=== PATIENT | female | born 1990 | race Caucasian/White ===

== ENCOUNTER 2023-11-20 15:08 | Inpatient (IN) | payer OTHER ==
[~2023-11-20] VITALS: Ht 157.5 cm; Wt 87.1 kg
[2023-11-20 16:21] LABS: EOSINOPHILS % 0.6 % (0.0-5.0); LYMPHOCYTES % 24.7 % (20.0-50.0); MEAN CORPUSCULAR HEMOGLOBIN 14.3 pg (28.0-32.0); MEAN CORPUSCULAR VOLUME 54.9 fL (81.0-99.0); MEAN PLATELET VOLUME 8.7 fl (7.4-10.4); MONOCYTES % 4.7 % (2.0-8.0); PLATELET 189 x1000/uL (130-400); RED BLOOD CELL COUNT 1.73 mill/uL (4.2-5.4); RED CELL DISTRIBUTION WIDTH 21.5 % (11.6-14.6); WHITE BLOOD COUNT 3.3 x1000/uL (4.5-11.0)
[2023-11-20 16:31] LABS: ADD RBC MORPHOLOGY YES; DIFFERENTIAL COMMENT 1; HEMATOCRIT. 9.5 % (36.0-48.0); HEMOGLOBIN. 2.5 g/dL (12.0-16.0)
[2023-11-20 16:36] LABS: ALANINE AMINOTRANSFERASE 25 IU/L (10-49); ALBUMIN 3.8 g/dL (3.2-4.8); ASPARTATE AMINOTRANSFERASE 14 IU/L (<34); BILIRUBIN TOTAL 1.4 mg/dL (0.1-1.0); CALCIUM 8.4 mg/dL (8.7-10.4); CARBON DIOXIDE 21 mEq/L (21-32); CHLORIDE 108 mEq/L (98-107); CREATININE 0.6 mg/dL (0.6-1.0); GLUCOSE 102 mg/dL (70-105); POTASSIUM 4.1 mEq/L (3.5-5.1); PROTEIN TOTAL 7.7 g/dL (6.0-8.3); SODIUM 137 mEq/L (136-145)
[2023-11-20 16:40] LABS: HCG SCREEN NEGATIVE
[2023-11-20 16:42] LABS: TROPONIN I HIGH SENSITIVITY < 4 ng/L (3.0-34); UREA NITROGEN BLOOD < 5 mg/dL (9-23)
[2023-11-20 17:00] LABS: HYPOCHROMASIA 2+; MICROCYTOSIS 2+
[2023-11-20 17:01] LABS: PLATELET ESTIMATE NORMAL
[2023-11-20 18:53] LABS: TROPONIN I HIGH SENSITIVITY < 4 ng/L (3.0-34)
[2023-11-20] MEDS: PANTOPRAZOLE SODIUM 40 MG/VIAL IV ONE (18:59)
[2023-11-20] MEDS: SODIUM CHLORIDE 0.9% 500 ML IV ONE (18:59)
[2023-11-20] MEDS ORDERED: DIPHENHYDRAMINE 50MG/ML VIAL IV PRN (22:30)
[2023-11-20] MEDS ORDERED: ONDANSETRON HCL 4MG/2ML INJ IV PRN (22:30)
[2023-11-20] MEDS ORDERED: HYDROCODONE/ACETAMINOPHEN 5/325MG TABLET PO PRN (22:30)
[2023-11-20] MEDS ORDERED: ACETAMINOPHEN 325MG TABLET PO PRN (22:30)
[2023-11-20] MEDS ORDERED: MAGNESIUM/ALUMINUM HYDROXIDE/SIMETHICONE 30ML UDC PO PRN (22:30)
[2023-11-20] MEDS ORDERED: DOCUSATE SODIUM 100MG CAPSULE PO PRN (22:30)
[2023-11-20] MEDS ORDERED: CLONIDINE 0.1MG TABLET PO PRN (22:30)
[2023-11-20] MEDS ORDERED: LORAZEPAM 2MG/ML INJ IV PRN (22:30)
[2023-11-20] MEDS ORDERED: NA PHOS,M-B/NA PHOS,DI-BA ENEMA 118ML PR PRN (22:30)
[2023-11-20] MEDS ORDERED: IPRATROPIUM/ALBUTEROL 0.5-3(2.5)MG/3ML NEB NEB PRN (22:30)
[2023-11-20] MEDS: SODIUM CHLORIDE 0.9% 1,000 ML IV SCH (22:47)
[2023-11-21] VITALS (12 sets, daily range): BP systolic 129–152; BP diastolic 64–82; PULSE 69–98; RESP 16–22; TEMP 97–98.6
[2023-11-21 00:58] LABS: BASOPHILS % 1.2 % (0.0-2.0); EOSINOPHILS % 0.8 % (0.0-5.0); LYMPHOCYTES % 27.7 % (20.0-50.0); MEAN CORPUSCULAR HEMOGLOBIN 22.4 pg (28.0-32.0); MEAN CORPUSCULAR HGB CONC 31.4 g/dL (31.0-37.0); MEAN CORPUSCULAR VOLUME 71.5 fL (81.0-99.0); MEAN PLATELET VOLUME 8.9 fl (7.4-10.4); MONOCYTES % 6.6 % (2.0-8.0); NEUTROPHILS % 63.7 % (40.0-76.0); PLATELET 182 x1000/uL (130-400); RED BLOOD CELL COUNT 2.62 mill/uL (4.2-5.4); RED CELL DISTRIBUTION WIDTH 33.1 % (11.6-14.6); WHITE BLOOD COUNT 3.7 x1000/uL (4.5-11.0)
[2023-11-21 01:03] LABS: DIFFERENTIAL COMMENT 1; HEMATOCRIT. 18.7 % (36.0-48.0); HEMOGLOBIN. 5.9 g/dL (12.0-16.0)
[2023-11-21 01:21] LABS: CALCIUM 8.1 mg/dL (8.7-10.4); CARBON DIOXIDE 19 mEq/L (21-32); CHLORIDE 109 mEq/L (98-107); CREATININE 0.5 mg/dL (0.6-1.0); GLUCOSE 82 mg/dL (70-105); POTASSIUM 4.1 mEq/L (3.5-5.1); SODIUM 137 mEq/L (136-145)
[2023-11-21 01:25] LABS: UREA NITROGEN BLOOD < 5 mg/dL (9-23)
[2023-11-21 04:36] LABS: ALANINE AMINOTRANSFERASE 20 IU/L (10-49); ALBUMIN 3.7 g/dL (3.2-4.8); ASPARTATE AMINOTRANSFERASE 14 IU/L (<34); CALCIUM 8.2 mg/dL (8.7-10.4); CARBON DIOXIDE 20 mEq/L (21-32); CHLORIDE 109 mEq/L (98-107); CREATININE 0.5 mg/dL (0.6-1.0); GLUCOSE 89 mg/dL (70-105); POTASSIUM 3.9 mEq/L (3.5-5.1); PROTEIN TOTAL 7.2 g/dL (6.0-8.3); SODIUM 137 mEq/L (136-145)
[2023-11-21 04:44] LABS: BILIRUBIN TOTAL 2.7 mg/dL (0.1-1.0); UREA NITROGEN BLOOD < 5 mg/dL (9-23)
[2023-11-21] MEDS ORDERED: GUAIFENESIN 200MG/10ML SUGAR FREE UDC PO PRN (07:45)
[2023-11-21] MEDS ORDERED: IPRATROPIUM/ALBUTEROL 0.5-3(2.5)MG/3ML NEB HHN PRN (07:45)
[2023-11-21 08:55] LABS: MEAN CORPUSCULAR HEMOGLOBIN 21.8 pg (28.0-32.0); MEAN CORPUSCULAR HGB CONC 30.9 g/dL (31.0-37.0); MEAN CORPUSCULAR VOLUME 70.5 fL (81.0-99.0); PLATELET 176 x1000/uL (130-400); RED BLOOD CELL COUNT 2.66 mill/uL (4.2-5.4); RED CELL DISTRIBUTION WIDTH 32.6 % (11.6-14.6); WHITE BLOOD COUNT 4.7 x1000/uL (4.5-11.0)
[2023-11-21 09:04] LABS: CALCIUM 8.6 mg/dL (8.7-10.4); CARBON DIOXIDE 19 mEq/L (21-32); CHLORIDE 110 mEq/L (98-107); CREATININE 0.5 mg/dL (0.6-1.0); GLUCOSE 86 mg/dL (70-105); IRON 28 ug/dL (50-170); SODIUM 138 mEq/L (136-145); TOTAL IRON BINDING CAPACITY 223 ug/dl (250-425); UREA NITROGEN BLOOD < 5 mg/dL (9-23)
[2023-11-21 09:11] LABS: HEMATOCRIT 18.7 % (36.0-48.0); HEMOGLOBIN 5.8 g/dL (12.0-16.0)
[2023-11-21 09:28] LABS: FERRITIN 9 ng/mL (10-291); FOLIC ACID (FOLATE) SERUM > 20.00 ng/mL (>5.38); VITAMIN B12 SERUM 1422 pg/mL (211-911)
[2023-11-21] MEDS: FUROSEMIDE 40MG/4ML VIAL IVP SCH (11:54)
[2023-11-21] MEDS: IRON SUCROSE COMPLEX 100 MG/5 ML ML IV SCH (11:54)
[2023-11-21] MEDS: FAMOTIDINE 20MG TABLET PO SCH (15:58)
[2023-11-21 18:43] LABS: CLARITY URINE CLEAR (CLEAR); COLOR URINE YELLOW (YELLOW); GLUCOSE URINE NEGATIVE (NEGATIVE); KETONES URINE NEGATIVE (NEGATIVE); LEUKOCYTE ESTERASE URINE NEGATIVE (NEGATIVE); NITRITE URINE NEGATIVE (NEGATIVE); OCCULT BLOOD URINE 1+ (NEGATIVE); PROTEIN URINE NEGATIVE (NEGATIVE)
[2023-11-21 18:57] LABS: RBC URINE NONE SEEN /hpf (0-2); WBC URINE 0-2 /hpf (0-2)
[2023-11-21 19:02] LABS: BACTERIA URINE NONE SEEN; SQUAMOUS EPITHELIAL CELL URINE 1+ /lpf (RARE/1+)
[2023-11-21] MEDS ORDERED: NALOXONE HCL 0.4MG/ML VIAL IV PRN (19:15)
[2023-11-21] MEDS ORDERED: CALCIUM CHLORIDE 1GM/10ML SYR IV NR (20:30)
[2023-11-21] MEDS ORDERED: FAMOTIDINE 20MG TABLET PO SCH (21:00)
[2023-11-21] MEDS: GUAIFENESIN 200MG/10ML SUGAR FREE UDC PO PRN (21:45)
[2023-11-21] MEDS: CALCIUM CHLORIDE 2,000 MG in DEXT 5% WATER 250 ML IV NR (23:30)
[2023-11-22] VITALS: BP 143/68; PULSE 75; RESP 20; TEMP 97.1
[2023-11-22 00:06] LABS: HEMATOCRIT 26.8 % (36.0-48.0); HEMOGLOBIN 8.7 g/dL (12.0-16.0)
[2023-11-22 04:00] VITALS: BP 143/67; PULSE 78; RESP 18; TEMP 97.4
[2023-11-22 06:58] LABS: EOSINOPHILS % 1.6 % (0.0-5.0); HEMATOCRIT. 24.2 % (36.0-48.0); HEMOGLOBIN. 7.9 g/dL (12.0-16.0); LYMPHOCYTES % 15.8 % (20.0-50.0); MEAN CORPUSCULAR HEMOGLOBIN 23.6 pg (28.0-32.0); MEAN CORPUSCULAR HGB CONC 32.6 g/dL (31.0-37.0); MEAN CORPUSCULAR VOLUME 72.4 fL (81.0-99.0); MONOCYTES % 5.6 % (2.0-8.0); PLATELET 143 x1000/uL (130-400); RED BLOOD CELL COUNT 3.33 mill/uL (4.2-5.4); RED CELL DISTRIBUTION WIDTH 30.6 % (11.6-14.6); WHITE BLOOD COUNT 5.6 x1000/uL (4.5-11.0)
[2023-11-22 07:15] LABS: CALCIUM 8.7 mg/dL (8.7-10.4); CARBON DIOXIDE 23 mEq/L (21-32); CHLORIDE 107 mEq/L (98-107); CREATININE 0.5 mg/dL (0.6-1.0); GLUCOSE 93 mg/dL (70-105); POTASSIUM 3.6 mEq/L (3.5-5.1); SODIUM 136 mEq/L (136-145)
[2023-11-22 07:21] LABS: UREA NITROGEN BLOOD < 5 mg/dL (9-23)
[2023-11-22 08:00] VITALS: BP 141/72; PULSE 67; RESP 18; TEMP 98.2
[2023-11-22 09:07] LABS: DIFFERENTIAL COMMENT 1
[2023-11-22] MEDS ORDERED: FERR325T6 MT (10:08)
[2023-11-22] MEDS ORDERED: DOCU-150 PO (10:08)
[2023-11-22] MEDS ORDERED: THIA50TA12 PO (10:10)
[2023-11-22 11:33] VITALS: BP 149/92; PULSE 80; TEMP 97.9; O2SAT 98
[2023-11-22 12:00] VITALS: BP 149/92; PULSE 80; RESP 16; TEMP 98.2
== END 2023-11-22 13:40 | disposition home or self-care (01) | DRG 812 ==
LOC: ER 15:08 → 7EST 19:57 → EDBEDREQ 20:09 → EDBEDREQTM 20:09
PROVIDERS: ADMIT Internal Medicine; ATTEND Internal Medicine
PROC: 30233N1 Transfusion of Nonautologous Red Blood Cells into Peripheral Vein, Percutaneous Approach (ICD-10-PCS; principal; 2023-11-20)
DX: D50.9 Iron deficiency anemia, unspecified (principal); I42.9 Cardiomyopathy, unspecified; D25.1 Intramural leiomyoma of uterus; Z20.822 Contact with and (suspected) exposure to COVID-19; Z79.899 Other long term (current) drug therapy
CPT/HCPCS: 36415; 71045; 76856; 80048; 80053; 81003; 82607; 82728; 82746; 83540; 83550; 83880; 84484; 84703; 85014; 85018; 85025; 85027; 85044; 85379; 86850; 86900; 86920; 87426; 93005; 93970; 99285; C9113; J1940; J3490; J7040; J7060; P9016